=== PATIENT | female | born 1980 | race Caucasian/White ===

== ENCOUNTER 2016-07-23 21:52 | Emergency (ER) | payer OTHER ==
[~2016-07-23] VITALS: Ht 160 cm; Wt 58.5 kg
[2016-07-23 22:00] VITALS: Ht 160 cm; Wt 58.5 kg
[2016-07-23] MEDS ORDERED: LISI-313 PO (22:30)
[2016-07-23] MEDS ORDERED: LIDOCAINE/MYLANTA 40 ML BTL PO ONE (22:30)
[2016-07-23] MEDS ORDERED: METF500T4 PO (22:30)
--- NOTE | 2016-07-23 22:32 | ERD ---
ER Documentation Chief Complaint Date/Time DATE: 07/23/16 TIME: 22:27 Chief Complaint cough,itchiness chest area, acid reflux- seen by outside clinix same c/o HPI 36-year-old female presents here in emergency department for complaints of mid chest pain after bending down forward today. Patient has history of acid reflux disease, as has a workup done for this already with primary care doctor. Tonight , patient bent forward, suddenly felt a chest pain, feel some itching in the chest area. Patient denies any trauma in the chest area. Patient denies any dyspnea on exertion or dyspnea on lying down. Patient denies any dizziness. Patient denies any fever or chills. Patient has been having dry cough with it. ROS All systems reviewed and are negative except as per history of present illness. Medications Home Meds Reported Medications Metformin* (Glucophage*) Unknown Strength Tab, PO BID, #20 TAB 07/23/16 Lisinopril* (Lisinopril*) Unknown Strength Tablet, PO DAILY, #30 TAB 07/23/16 Allergies Allergies: Coded Allergies: No Known Allergy (Unverified , 07/23/16) PMhx/Soc Medical and Surgical Hx: pt denies Medical Hx, pt denies Surgical Hx FmHx Family History: No coronary disease, No diabetes, No other Physical Exam Vitals Vital Signs Date Time Temp Pulse Resp B/P Pulse Ox O2 Delivery O2 Flow Rate FiO2 07/23/16 22:00 98.3 78 20 126/72 99 Physical Exam GENERAL: The patient is well developed and appropriate for usual state of health, in no apparent distress. CHEST: Clear to auscultation bilaterally. There are no rales, wheezes or rhonchi. HEART: Regular rate and rhythm. No murmurs, clicks, rubs or gallops. No S3 or S4. ABDOMEN: Soft, nontender and nondistended. Good bowel sounds. No rebound or guarding. No gross peritonitis. No gross organomegaly or masses. No Castano sign or McBurney point tenderness. BACK: No midline or flank tenderness. EXTREMITIES: Equal pulses bilaterally. There is no peripheral clubbing, cyanosis or edema. No focal swelling or erythema. Full range of motion. Grossly neurovascularly intact. NEURO: Alert and oriented. Cranial nerves 2-12 intact. Motor strength in all 4 extremities with 5/5 strength. Sensation grossly intact. Normal speech and gait. SKIN: There is no apparent rash or petechia. The skin is warm and dry. HEMATOLOGIC AND LYMPHATIC: There is no evidence of excessive bruising or lymphedema. No gross cervical, axillary, or inguinal lymphadenopathy. Results 24 hrs Current Medications Medications (Trade) Dose Ordered Sig/Melba Route PRN Reason Start Time Stop Time Status Last Admin Dose Admin Miscellaneous Medication (Gi Cocktail (2)) 40 ml ONCE ONCE PO 07/23/16 22:30 07/23/16 22:40 DC 07/23/16 22:55 EKG was done, read by me and is normal sinus rhythm at a rate of 78, normal axis , there is no ST changes or changes in the EKG that indicates any cardiac emergencies at this time. Patient's EKG was also reviewed by Dr. Hodges. Impression: no acute findings on EKG PROCEDURE: Portable chest x-ray. CLINICAL INDICATION: Chest pain. TECHNIQUE: Portable AP view of the chest. COMPARISON: None. FINDINGS: No pulmonary edema or conolidation is identified. The cardiac silhouette is magnified. No pleural effusion is seen. There is no pneumothorax. IMPRESSION: 1. No evidence of acute cardiopulmonary disease. RPTAT: HTAR .Epifanio Javier MD, MD Date Time Electronically viewed and signed by .Epifanio Javier MD, MD on 07/23/2016 23:39 .R/ GI cocktail was given here in emergency department, but less than much better afterwards Procedures/MDM Medical Decision Making: Patient's symptoms are nonspecific at this time, possible acid reflux disease, patient symptoms improve after treatment here in emergency department. There is low suspicion for cardiopulmonary emergencies at this time. Patient has low risk factors. EKG is normal, there is no changes in the EKG that indicates cardiac emergencies. Chest X-ray does not show cardiopulmonary emergencies at this time. There is low suspicion for aortic aneurysm, myocardial infarction, pneumothorax, pleural effusion, pulmonary embolism, or any other cardiopulmonary emergencies at this time. Patient was given prescription for omeprazole, Mylanta, is advised to follow-up with primary care doctor 2-3 days for reevaluation of symptoms. Patient is advised to return to emergency department for any worsening symptoms. Departure Diagnosis: Primary Impression: Atypical chest pain Condition: Stable Patient Instructions: Chest Pain, Uncertain Cause RACHEAL JOHNSON NP Jul 23, 2016 22:32
--- NOTE | 2016-07-23 23:40 | RADRPT ---
PROCEDURE: Portable chest x-ray. CLINICAL INDICATION: Chest pain. TECHNIQUE: Portable AP view of the chest. COMPARISON: None. FINDINGS: No pulmonary edema or conolidation is identified. The cardiac silhouette is magnified. No pleural effusion is seen. There is no pneumothorax. IMPRESSION: 1. No evidence of acute cardiopulmonary disease. RPTAT: HTAR .Epifanio Javier MD, MD Date Time Electronically viewed and signed by .Epifanio Javier MD, on 07/23/2016 23:39 .R/
[2016-07-23] MEDS ORDERED: OMEP20CA16 PO (23:52)
[2016-07-23] MEDS ORDERED: MAG-19 PO (23:52)
== END 2016-07-24 00:09 | disposition home or self-care (01) ==
LOC: FTE 21:52
DX: R07.89 Other chest pain (principal); I10 Essential (primary) hypertension; E11.9 Type 2 diabetes mellitus without complications; Z79.84 Long term (current) use of oral hypoglycemic drugs
CPT/HCPCS: 71010; 93005

== ENCOUNTER 2018-12-20 16:25 | Emergency (ER) | payer OTHER ==
[~2018-12-20] VITALS: Ht 157.5 cm; Wt 61.6 kg
[~2018-12-20 16:25] MED LIST: LISI-313 PO; MAG-19 PO; METF-849 PO; OMEP20CA16 PO
[2018-12-20 16:29] VITALS: Ht 157.5 cm; Wt 61.6 kg
[2018-12-20] MEDS ORDERED: ACET-141 PO (19:41)
--- NOTE | 2018-12-20 19:41 | ERD ---
ER Documentation Chief Complaint Chief Complaint right leg pain no injury ROS All systems reviewed and are negative except as per history of present illness. Medications Home Meds Active Scripts Acetaminophen* (Acetaminophen*) 500 MG Extra Strength Tablet, 500 MG PO Q4H PRN for PAIN AND OR ELEVATED TEMP, #30 TAB Prov:SHERI CAMARILLO DO 12/20/18 Magaldrate/Simethicone* (Mylanta*) 355 Ml Susp, 30 ML PO QID PRN for GASTROINTESTINAL UPSET, #1 BOTTLE Prov:RACHEAL JOHNSON ROOF TILER 07/23/16 Omeprazole* (Omeprazole*) 20 Mg Capsule.dr, 20 MG PO DAILY, #30 Prov:RACHEAL JOHNSON ROOF TILER 07/23/16 Reported Medications Metformin* (Glucophage*) Unknown Strength Tab, PO BID, #20 TAB 07/23/16 Lisinopril* (Lisinopril*) Unknown Strength Tablet, PO DAILY, #30 TAB 07/23/16 Allergies Allergies: Coded Allergies: No Known Allergy (Unverified , 07/23/16) PMhx/Soc History of Surgery: No Anesthesia Reaction: No Hx Neurological Disorder: No Hx Respiratory Disorders: No Hx Cardiac Disorders: Yes (HTN) Hx Psychiatric Problems: No Hx Miscellaneous Medical Probl: Yes (DM) Hx Alcohol Use: Yes (socially) Hx Substance Use: No Hx Tobacco Use: No Smoking Status: Never smoker Physical Exam Vitals Vital Signs Date Temp Pulse Resp B/P (MAP) Pulse Ox O2 O2 Flow FiO2 Time Delivery Rate 12/20/18 99.2 120 18 151/75 97 16:29 (100) Physical Exam Const: No acute distress Head: Atraumatic Eyes: Normal Conjunctiva ENT: Normal External Ears, Nose and Mouth. Neck: Full range of motion. No meningismus. Resp: Clear to auscultation bilaterally Cardio: Regular rate and rhythm, no murmurs Abd: Soft, non tender, non distended. Normal bowel sounds Skin: No petechiae or rashes Back: No midline or flank tenderness Ext: No cyanosis, or edema Neur: Awake and alert Psych: Normal Mood and Affect Results 24 hrs Laboratory Tests Test 12/20/18 17:49 POC Beta HCG, Qualitative NEGATIVE Departure Diagnosis: Primary Impression: Pain of right leg Condition: Fair Patient Instructions: Possible Causes of Low Back or Leg Pain Referrals: COMM[facility] YOU HAVE RECEIVED A MEDICAL SCREENING EXAM AND THE RESULTS INDICATE THAT YOU DO NOT HAVE A CONDITION THAT REQUIRES URGENT TREATMENT IN THE EMERGENCY DEPARTMENT. FURTHER EVALUATION AND TREATMENT OF YOUR CONDITION CAN WAIT UNTIL YOU ARE SEEN IN YOUR DOCTORS OFFICE WITHIN THE NEXT 1-2 DAYS. IT IS YOUR RESPONSIBILITY TO MAKE AN APPOINTMENT FOR FOLOW-UP CARE. IF YOU HAVE A PRIMARY DOCTOR --you should call your primary doctor and schedule an appointment IF YOU DO NOT HAVE A PRIMARY DOCTOR YOU CAN CALL OUR PHYSICIAN REFERRAL HOTLINE AT IF YOU CAN NOT AFFORD TO SEE A PHYSICIAN YOU CAN CHOSE FROM THE FOLLOWING [facility] CL[facility]ICS [facility] [address] [facility]. [facility] [address] [facility] [facility] [address] [facility] [facility] [address]. [facility] [address] [facility]. [facility]. [address] Additional Instructions: Call your primary care doctor TOMORROW for an appointment during the next 1-2 days.See the doctor sooner or return here if your condition worsens before your appointment time. SHERI CAMARILLO DO Dec 20, 2018 19:41
[2018-12-20 19:52] VITALS: BP 120/79; PULSE 88; RESP 17
== END 2018-12-20 19:52 | disposition home or self-care (01) ==
LOC: FTE 16:25
DX: M79.604 Pain in right leg (principal); I10 Essential (primary) hypertension; E11.9 Type 2 diabetes mellitus without complications; Z79.84 Long term (current) use of oral hypoglycemic drugs
CPT/HCPCS: 73510; 81025; 93971